=== PATIENT | male | born 1990 | race African-American/Black ===

== ENCOUNTER 2017-12-22 13:11 | Emergency (ER) | payer BC, OTHER ==
[2017-12-22] MEDS: ONDANSETRON ODT 4 MG TAB.RAPDIS. PO ×2 (14:19)
[2017-12-22] MEDS: FAMOTIDINE 20 MG TABLET. PO ×2 (14:19)
[2017-12-22] MEDS: LIDO:MAALOX:DONNATAL 1:1:1 15 ML SINGLE DOSE SWSW ×2 (14:21)
[2017-12-22] MEDS: DICYCLOMINE HCL 10 MG CAPSULE PO ×2 (14:21)
[2017-12-22 15:05] LABS: INFLUENZA A PATIENT NEGATIVE (NEGATIVE); INFLUENZA B PATIENT NEGATIVE (NEGATIVE); OBC FLU VALID
== END 2017-12-22 15:38 | disposition home or self-care (01) ==
LOC: ER 13:11
DX: A08.4 Viral intestinal infection, unspecified (principal)
CPT/HCPCS: 87804; 87804-59; 99284; Q0162